=== PATIENT | male | born 1960 | race Caucasian/White ===

== ENCOUNTER 2019-11-29 09:27 | Outpatient (CLI) | payer MEDICARE, MEDICAID, SELFPAY ==
[2019-11-29 09:54] LABS: Basophils Absolute Auto 0.1 K/mm3 (0.0-0.1); Basophils Percent Auto 0.9 % (0.2-1.2); Eosinophils Absolute Auto 0.4 K/mm3 (0-0.3); Eosinophils Percent Auto 4.6 % (0-4.4); Hematocrit 50.3 % (42.0-52.0); Hemoglobin 16.5 g/dL (14.0-18.0); Immature Granulocyte Absolute 0.02 K/mm3 (0.00-0.031); Immature Granulocyte Percent A 0.2 % (0-0.5); Lymphocytes Absolute Auto 2.24 K/mm3 (0.9-3.2); Lymphocytes Percent Auto 26.3 % (18.3-44.2); Mean Corpuscular HGB Conc 32.8 g/dl (32-36); Mean Corpuscular Hemoglobin 30.7 pg (26-34); Mean Corpuscular Volume 93.5 fl (80-100); Mean Platelet Volume 10.8 fl (7.4-10.4); Monocytes Absolute Auto 0.8 K/mm3 (0.1-0.6); Monocytes Percent Auto 9.5 % (2.6-8.5); Neutrophils Percent Auto 58.5 % (45.5-73.1); Platelet Count Result 230 k/mm3 (150-375); Red Blood Count 5.38 M/mm3 (4.6-6.20); Red Cell Distribution Width 13.2 % (11.5-14.5); White Blood Count 8.5 K/mm3 (4.5-10.0)
[2019-11-29 10:07] LABS: Alanine Aminotransferase 20 U/L (4-50); Albumin Level 4.1 g/dL (3.5-5.1); Alkaline Phosphatase 61 U/L (38-126); Aspartate Amino Transferase 24 U/L (17-59); Bilirubin,Total 0.6 mg/dL (0.2-1.3); Blood Urea Nitrogen 12 mg/dL (9-20); Calcium 9.1 mg/dL (8.4-10.2); Carbon Dioxide 27 mmol/L (22-30); Chloride 108 mmol/L (98-107); Cholesterol 149 mg/dL (0-200); Estimated Glomerular Filt Rate 56; Glucose 107 mg/dL (75-110); HDL Direct 41 mg/dL; Potassium 4.7 mmol/L (3.4-5.0); Sodium 139 mmol/L (137-145); Triglycerides 140 mg/dL (<150)
[2019-11-29 10:18] LABS: LDL Cholesterol Direct 87 mg/dL
[2019-11-29 10:36] LABS: Thyroid Stimulating Hormone 0.837 uIU/mL (0.465-4.680)
[2019-11-29 10:47] LABS: Vitamin D 25 Hydroxy 30.8 ng/mL
== END 2019-11-29 09:28 | disposition home or self-care (01) ==
PROVIDERS: PCP Internal Medicine; Visit Provider Internal Medicine
DX: I10 Essential (primary) hypertension (principal); E78.2 Mixed hyperlipidemia; E55.9 Vitamin D deficiency, unspecified
CPT/HCPCS: 36415; 80053; 80061; 82306; 84443; 85025

== ENCOUNTER 2020-03-08 10:58 | Outpatient (CLI) | payer MEDICARE, MEDICAID, SELFPAY ==
--- NOTE | ~2020-03-08 | CT_ITS ---
EXAMINATION: CT chest wo con DATE: 03/08/2020 11:23 INDICATION: Follow-up pulmonary nodule. Renal cell carcinoma. Skin cancer. TECHNIQUE: Computed tomography (CT) of the chest was performed without intravenous contrast. The dose -length product was 116.81 mGy-cm. Automated exposure control and iterative reconstruction technique were employed. COMPARISON: CT dated 01/01/2019 and 08/01/2018 FINDINGS: No thoracic lymphadenopathy. Heart size normal. No significant pleural or pericardial effus ion. There is a 2.6 cm liver cyst. No endobronchial lesions. No focal airspace consolidation. Small r ight upper lobe nodules unchanged, largest measuring 3 mm. Stable fissural nodule on the left, likely benign. Mild emphysema. No pneumothorax. Mild thoracic spondylosis. No osteolytic or osteoblastic le sions. IMPRESSION: 1. Stable right upper lobe nodules, largest measuring 3 mm, likely benign. 2: Mild emphysema. Reviewed, dictated and finalized at location A.
== END 2020-03-08 10:59 | disposition home or self-care (01) ==
PROVIDERS: PCP Internal Medicine; Visit Provider Internal Medicine Critical Care Medicine
DX: R91.1 Solitary pulmonary nodule (principal); R91.8 Other nonspecific abnormal finding of lung field; J43.9 Emphysema, unspecified
CPT/HCPCS: 71250

== ENCOUNTER 2020-06-01 08:19 | Outpatient (CLI) | payer MEDICARE, MEDICAID, SELFPAY ==
[2020-06-01 09:32] LABS: Alanine Aminotransferase 16 U/L (4-50); Albumin Level 4.2 g/dL (3.5-5.1); Alkaline Phosphatase 65 U/L (38-126); Anion Gap 4 mmol/L (8-16); Aspartate Amino Transferase 22 U/L (17-59); Bilirubin,Total 0.5 mg/dL (0.2-1.3); Blood Urea Nitrogen 15 mg/dL (9-20); Carbon Dioxide 28 mmol/L (22-30); Chloride 104 mmol/L (98-107); Estimated Glomerular Filt Rate 52; Glucose 111 mg/dL (75-110); Potassium 4.6 mmol/L (3.4-5.0); Sodium 136 mmol/L (137-145)
[2020-06-01 10:07] LABS: Prostate Specific Antigen 0.9 ng/mL (< OR = 4.0)
== END 2020-06-01 08:20 | disposition home or self-care (01) ==
PROVIDERS: PCP Internal Medicine; Visit Provider Internal Medicine
DX: Z12.5 Encounter for screening for malignant neoplasm of prostate (principal); E78.2 Mixed hyperlipidemia; I10 Essential (primary) hypertension
CPT/HCPCS: 36415; 80053; 84153; G0103

== ENCOUNTER 2020-06-02 00:24 | Outpatient (CLI) | payer MEDICARE, MEDICAID, SELFPAY ==
[2020-06-02 17:26] LABS: SARS-CoV-2 RNA PCR Negative
== END 2020-06-02 00:25 | disposition home or self-care (01) ==
LOC: ANHCOVIDDT 00:25
PROVIDERS: PCP Internal Medicine; Visit Provider Plastic Surgery
DX: Z01.812 Encounter for preprocedural laboratory examination (principal); Z20.828 Contact with and (suspected) exposure to other viral communicable diseases
CPT/HCPCS: 87635; C9803; U0003

== ENCOUNTER 2020-06-04 00:57 | Day surgery (SDC) | payer MEDICARE, MEDICAID, SELFPAY ==
[2020-05-26 11:43] VITALS: BMI 27.3
[2020-06-04] VITALS (9 sets, daily range): BP systolic 137–153; BP diastolic 70–83; PULSE 56–72; RESP 14–20; TEMP 37.2; O2SAT 96–99
--- NOTE | 2020-06-04 07:11 | WPDHPUPDATE1 ---
History and Physical Update Update Date/Time: 06/04/20 07:11 History and Physical has been reviewed, including an updated exam of the patient. There are NO changes in the patient's condition. Risks, benefits, and alternatives have been discussed and questions answered. Patient agrees to proceed with procedure.
[2020-06-04] MEDS: LIDO 1%/EPINEPHRINE 1:100,000 20 ML VIAL 8 ML INFILTRATE (12:53)
[2020-06-04] MEDS: BACITRACIN OINTMENT 15 GM TUBE 1 APPLIC TOPICAL (13:41)
--- NOTE | 2020-06-04 13:59 | SUR.OPER ---
EBL:5cc
--- NOTE | 2020-06-04 17:17 | PM.PROC ---
Procedure Note - Detailed Date of procedure: 06/04/20 Pre-op diagnosis: subq mass right ring finger Post-op diagnosis: same Procedure performed: excision of 2.5 cm subcutaneous mass of the right ring finger through 2 access incisions Description of procedure: the right ring finger was marked in the holding area identifying the firm subcutaneous masses on the dorsal and palmar aspect of the ring finger on both the proximal and middle phalanges. He was taken to the operating room placed supine on the operating table. The hand was prepped and draped in the usual fashion. The digit was anesthetized with 1% lidocaine with epinephrine placed as an intrathecal block. The green tourniquet was applied to the base of this finger. The initial incision was a paramedian incision for the proximal interphalangeal joint and middle phalanx. Dissection revealed a large firm softly lobulated mass with some celis pigment consistent with giant cell tumor. Blunt dissection with sharp tip scissors was used throughout this procedure. The narrow limb of this substance extended into the palmar aspect past the phalanx and tendon sheath. The 2nd incision was made more proximally on the palmar aspect running and Laureano fashion. A tumor mass of equal size was found on this side. It lay on or around the flexor tendon sheath. It was removed in its entirety. The wound was closed with running 5 0 nylon and a bulky bandage He was discharged with instructions in wound care and follow-up and a prescription for Hydrocodone . Surgeon: Fahad Schmid MD
== END 2020-06-04 14:40 | disposition home or self-care (01) ==
PROVIDERS: PCP Internal Medicine; Visit Provider Plastic Surgery
DX: D48.1 Neoplasm of uncertain behavior of connective and other soft tissue (principal); F17.200 Nicotine dependence, unspecified, uncomplicated; J43.9 Emphysema, unspecified; I13.10 Hypertensive heart and chronic kidney disease without heart failure, with stage 1 through stage 4 chronic kidney disease, or unspecified chronic kidney disease; N18.9 Chronic kidney disease, unspecified; Z90.5 Acquired absence of kidney; M19.90 Unspecified osteoarthritis, unspecified site
CPT/HCPCS: 26160; 88304; A9270

== ENCOUNTER 2020-10-29 10:24 | Outpatient (CLI) | payer MEDICARE, MEDICAID, SELFPAY ==
--- NOTE | ~2020-10-29 | XR_ITS ---
EXAMINATION: XR chest 2V 10/29/2020 10:44 INDICATION: Shortness of breath PROCEDURE: 2 view chest COMPARISON: 12/18/2017 FINDINGS: The lungs are clear. The cardiomediastinal silhouette is within normal limits. There are no pleural effusions. There is no pneumothorax suspected. IMPRESSION: 1: NO ACUTE CARDIOPULMONARY DISEASE. Reviewed, dictated and finalized at location B. STOCK FEEDER
== END 2020-10-29 10:25 | disposition home or self-care (01) ==
PROVIDERS: PCP Internal Medicine; Visit Provider Nurse Practitioner Family
DX: R06.02 Shortness of breath (principal); J44.9 Chronic obstructive pulmonary disease, unspecified; R05 Cough
CPT/HCPCS: 71046

== ENCOUNTER 2020-12-04 09:03 | Outpatient (CLI) | payer MEDICARE, MEDICAID, SELFPAY ==
[2020-12-04 09:24] LABS: Basophils Absolute Auto 0.1 K/mm3 (0.0-0.1); Basophils Percent Auto 0.7 % (0.2-1.2); Eosinophils Absolute Auto 0.2 K/mm3 (0-0.3); Eosinophils Percent Auto 2.2 % (0-4.4); Hematocrit 48.8 % (42.0-52.0); Hemoglobin 16.5 g/dL (14.0-18.0); Immature Granulocyte Absolute 0.05 K/mm3 (0.00-0.031); Immature Granulocyte Percent A 0.5 % (0-0.5); Lymphocytes Absolute Auto 2.14 K/mm3 (0.9-3.2); Lymphocytes Percent Auto 22.4 % (18.3-44.2); Mean Corpuscular HGB Conc 33.8 g/dl (32-36); Mean Corpuscular Hemoglobin 31.1 pg (26-34); Mean Corpuscular Volume 92.1 fl (80-100); Mean Platelet Volume 10.3 fl (7.4-10.4); Monocytes Absolute Auto 0.8 K/mm3 (0.1-0.6); Monocytes Percent Auto 8.8 % (2.6-8.5); Neutrophils Absolute Auto 6.3 K/mm3 (1.3-6.7); Neutrophils Percent Auto 65.4 % (45.5-73.1); Platelet Count Result 221 k/mm3 (150-375); Red Cell Distribution Width 13.2 % (11.5-14.5); White Blood Count 9.6 K/mm3 (4.5-10.0)
[2020-12-04 10:40] LABS: Vitamin D 25 Hydroxy 32.6 ng/mL
[2020-12-04 10:47] LABS: Alanine Aminotransferase 17 U/L (4-50); Albumin Level 4.2 g/dL (3.5-5.1); Alkaline Phosphatase 61 U/L (38-126); Anion Gap 4 mmol/L (8-16); Aspartate Amino Transferase 23 U/L (17-59); Bilirubin,Total 0.8 mg/dL (0.2-1.3); Blood Urea Nitrogen 15 mg/dL (9-20); Calcium 9.3 mg/dL (8.4-10.2); Carbon Dioxide 28 mmol/L (22-30); Chloride 107 mmol/L (98-107); Cholesterol 141 mg/dL (0-200); Estimated Glomerular Filt Rate 48; Glucose 113 mg/dL (75-110); HDL Direct 44 mg/dL; Potassium 4.1 mmol/L (3.4-5.0); Sodium 139 mmol/L (137-145); Triglycerides 111 mg/dL (<150)
[2020-12-04 11:00] LABS: LDL Cholesterol Direct 73 mg/dL
[2020-12-04 11:20] LABS: Prostate Specific Antigen 1.1 ng/mL (< OR = 4.0)
[2020-12-04 11:54] LABS: Folic Acid 13.3 ng/mL (2.76->20)
== END 2020-12-04 09:04 | disposition home or self-care (01) ==
PROVIDERS: PCP Internal Medicine; Visit Provider Internal Medicine
DX: E55.9 Vitamin D deficiency, unspecified (principal); E78.2 Mixed hyperlipidemia; F32.9 Major depressive disorder, single episode, unspecified; F41.9 Anxiety disorder, unspecified; G62.9 Polyneuropathy, unspecified; I10 Essential (primary) hypertension; I25.10 Atherosclerotic heart disease of native coronary artery without angina pectoris; J44.9 Chronic obstructive pulmonary disease, unspecified; Z12.5 Encounter for screening for malignant neoplasm of prostate
CPT/HCPCS: 36415; 80053; 80061; 82306; 82607; 82746; 84153; 84443; 85025; G0103

== ENCOUNTER 2021-03-01 10:02 | Outpatient (CLI) | payer MEDICARE, MEDICAID, SELFPAY ==
--- NOTE | ~2021-03-01 | CT_ITS ---
EXAMINATION: CT lung screening DATE: 03/01/2021 10:17 INDICATION: Z87.891 - Personal history of nicotine dependence TECHNIQUE: Computed tomography (CT) of the chest was performed without intravenous contrast. Addition al 3D reconstructions utilizing coronal maximum intensity projection (MIP) were performed. Automated exposure control and iterative reconstruction technique were employed. The dose-length product was 13 1.57 mGy-cm. COMPARISON: None FINDINGS: There are a couple 2-3 mm nodules in both the the apical segment of the right upper lobe in the apico posterior segment of the left upper lobe. 3 mm nodule in the superior segment of the right lower lobe . No pneumonia, pulmonary edema or pleural effusion. Heart size is normal. Small amount of atheroscle rotic coronary artery calcific location. No pericardial effusion. Thoracic aorta is normal in caliber . No pathologically enlarged thoracic lymphadenopathy. Couple low-attenuation hepatic cysts, the larg est measuring 2.6 cm. Moderate thoracic spondylosis. IMPRESSION: 1. Lung-RADS category 2: Benign appearance or behavior. Continue annual screening with noncontrast lo w-dose chest CT in 12 months. Reviewed, dictated and finalized at location A. IMPRESSION: 1. Lung-RADS category 2: Benign appearance or behavior. Continue annual screeni ng with noncontrast low-dose chest CT in 12 months.
== END 2021-03-01 10:03 | disposition home or self-care (01) ==
LOC: ANHIMG 10:07
PROVIDERS: PCP Family Medicine; Visit Provider Nurse Practitioner Family
DX: Z12.2 Encounter for screening for malignant neoplasm of respiratory organs (principal); Z87.891 Personal history of nicotine dependence
CPT/HCPCS: 71271

== ENCOUNTER 2022-03-02 08:02 | Outpatient (CLI) | payer MEDICARE, MEDICAID, SELFPAY ==
--- NOTE | ~2022-03-02 | CT_ITS ---
EXAMINATION:CT lung screening DATE: 03/02/2022 08:27 INDICATION: Personal history of nicotine dependence. Current smoker with 45 pack year history. TECHNIQUE: Computed tomography (CT) of the chest was performed without intravenous contrast. Automate d exposure control and iterative reconstruction technique were employed. The dose-length product (DLP ) was 114.32 mGy-cm. COMPARISON: Chest CT 03/01/2021 FINDINGS: There is mild emphysema. There is mild scarring at the lung apices without change. There is a new 5 mm nodule in right upper lobe. There is a stable 3 mm nodule in left upper lobe. No pleural effusion. The heart size is normal. There are coronary artery calcifications. No pericardial effusion . There are cysts in the liver measuring up to 1.9 cm. There is severe cervical and thoracic spondylo sis. IMPRESSION: 1. Lung-RADS category 3: Probably benign. Further evaluation is recommended with noncontrast low-dose chest CT in 6 months. Reviewed, dictated and finalized at location B. IMPRESSION: 1. Lung-RADS category 3: Probably benign. Further evaluation is recommended wit h noncontrast low-dose chest CT in 6 months.
== END 2022-03-02 08:03 | disposition home or self-care (01) ==
PROVIDERS: PCP Family Medicine; Visit Provider Nurse Practitioner Family
DX: Z12.2 Encounter for screening for malignant neoplasm of respiratory organs (principal); Z87.891 Personal history of nicotine dependence
CPT/HCPCS: 71271

== ENCOUNTER 2022-04-17 13:08 | Outpatient (CLI) | payer MEDICARE, MEDICAID, SELFPAY ==
--- NOTE | ~2022-04-17 | CT_ITS ---
EXAMINATION: CT sinus wo con DATE: 04/17/2022 13:39 INDICATION: Chronic sinusitis TECHNIQUE: Computed tomography (CT) of the paranasal sinuses was performed without contrast. Iterativ e reconstruction technique was employed. Exam dose: 305.77 mGy-cm total exam DLP. COMPARISON: None FINDINGS: There is prominent rightward deviation of the anterior portion of the nasal septum and mild leftward bowing of the posterior septum. There is prominent soft tissue swelling of the nasal turbinates, right greater than left. Intralamellar cell of left middle nasal turbinate. The ostiomeatal units are patent bilaterally. There is patchy soft tissue thickening of the ethmoid air cells bilaterally. Small mucous retention cysts in the posteromedial aspect of the right maxillary sinus. The paranasal sinuses are otherwise normally developed and aerated. The mastoid air cells are well-developed and aerated bilaterally. Middle and inner ear apparatus appear normal. IMPRESSION: Prominent rightward deviation of the anterior nasal septum, mild leftward bowing of post erior nasal septum Soft tissue swelling of the nasal turbinates, right greater than left Intralamellar cell of left middle nasal turbinate Patchy soft tissue thickening the ethmoid air cells Small mucus retention cyst of right maxillary sinus Reviewed, dictated and finalized at Location A. Reviewed, dictated and finalized at location B. IMPRESSION: Prominent rightward deviation of the anterior nasal septum, mild l eftward bowing of posterior nasal septum Soft tissue swelling of the nasal turbinates, right greater than left Intralamellar cell of left middle nasal turbinate Patchy soft tissue thickening the ethmoid air cells Small mucus retention cyst of right maxillary sinus
== END 2022-04-17 13:09 | disposition home or self-care (01) ==
PROVIDERS: PCP Family Medicine; Visit Provider Otolaryngology
DX: J32.9 Chronic sinusitis, unspecified (principal); J34.2 Deviated nasal septum; J34.3 Hypertrophy of nasal turbinates; R09.81 Nasal congestion; R09.82 Postnasal drip; R51.9 Headache, unspecified; Z72.0 Tobacco use
CPT/HCPCS: 70486

== ENCOUNTER 2022-06-08 09:06 | Outpatient (CLI) | payer MEDICARE, MEDICAID, SELFPAY ==
--- NOTE | 2022-06-08 09:26 | ECG_ITS ---
Measurements Intervals [place] Rate: 62 P: 55 ND: 163 QRS: 28 QRSD: 94 T: 52 QT: 407 QTc: 414 Interpretive Statements SINUS RHYTHM BASELINE ARTIFACT- I, III, AVR, AVL, AVF NORMAL ECG COMPARED TO ECG 11/27/2018 10:14:53 NO SIGNIFICANT CHANGES Electronically Signed On 06-08-2022 12:02:25 CDT by Oneil Pierce D.O.
[2022-06-08 10:17] LABS: Anion Gap 11 mmol/L (8-16); Blood Urea Nitrogen 11 mg/dL (9-20); Calcium 8.8 mg/dL (8.4-10.2); Carbon Dioxide 24 mmol/L (22-30); Chloride 106 mmol/L (98-107); Estimated Glomerular Filt Rate > 60; Glucose 115 mg/dL (65-110); Potassium 3.9 mmol/L (3.4-5.0); Prothrombin Time 13.1 Seconds (11.1-14.7); Sodium 141 mmol/L (137-145)
[2022-06-08 10:18] LABS: Partial Thromboplastin Time 28.6 SECONDS (22.3-36.8)
== END 2022-06-08 09:07 | disposition home or self-care (01) ==
LOC: ANHSURGERY 09:16
PROVIDERS: Anesthesiology; PCP Family Medicine; Visit Provider Otolaryngology
DX: N28.9 Disorder of kidney and ureter, unspecified (principal); E78.2 Mixed hyperlipidemia; I10 Essential (primary) hypertension; Z72.0 Tobacco use; Z01.818 Encounter for other preprocedural examination
CPT/HCPCS: 36415; 80048; 85610; 85730; 93005

== ENCOUNTER 2022-06-10 01:07 | Day surgery (SDC) | payer MEDICARE, MEDICAID, SELFPAY ==
[2022-06-07 13:23] VITALS: BMI 25.8
--- NOTE | 2022-06-07 13:33 | PC.NURSE ---
Report to the Outpatient Waiting Room, entrance under the green pavilion located off [facility], at time 1000 on date 06/10/22. OR Time: 1200. Time changes happen often and if your time is changed the preop area will call you the afternoon before. - You and your visitor will be asked to self-screen and do not enter if you have any COVID symptoms. - Only one visitor and NO children visitors are allowed at this time. - The patient visitor is requested to leave or wait in car when not with patient due to restrictions. - A mask is required within the hospital. Patients may have clear liquids (water, carbonated beverages, clear teas, apple juice) until 3 hours prior to surgery with a maximum of 20 ounces. - No food from midnight until time of surgery Take the following medications with a SIP of water the morning of surgery: INHALERS, GABAPENTIN Medications to discontinue per physician: ASPIRIN Date to take last dose: PER DR. DURAN Please no make-up, nail ir[place]i, hairspray, perfume, deodorant, or body powder the day of surgery. No jewelry (including any body piercings) or valuables the day of surgery, leave them at home. Please take a shower or bath the night before, or the morning of, surgery with an antibacterial soap. Wear comfortable, loose fitting clothing. - Jewelry must be removed prior to entering the operating room. Rings and piercings that are not removed may be cut off. - The hospital will not accept responsibility for valuables. - Please leave all valuables, including medications, at home the day of surgery. If you are going home after surgery, a licensed trash collector truck driver must drive you home. - NO public transportation without another adult. - We recommend that an adult stay with you for 24 hours following discharge. - We also recommend that you do not drive, make important decision, drink alcoholic beverages, or take any drugs that were not prescribed by your health care provider for at least 24 hours after your discharge time. Follow any additional instructions given to you from your surgeon. If you or anyone in your household have experienced Covid symptoms in the past week, please notify your surgeon or the nurse liaison at the phone number below for possible testing. Telephone instructions given to PT - SINGH WALDROP and asked if any additional questions and then verbalized understanding. Patient advised to call surgeon office or pre surgery nurse liaison [phone] if any additional questions.
--- NOTE | 2022-06-09 07:58 | PM.IMHP ---
H&P: HPI History of Present Illness Date/Time: 06/09/22 07:58 Chief Complaint: Septal deviation turbinate hypertrophy nasal obstruction nasal congestion chronic sinusitis postnasal drip facial pressure facial pain PMFSH Past Medical History Medical History CAD in [place] artery DJD (degenerative joint disease), lumbosacral Essential hypertension Hx of renal cell carcinoma Hx of solitary pulmonary nodule Hx of unilateral nephrectomy Impaired fasting glucose Low sodium levels Marijuana use Mixed hyperlipidemia Osteoarthritis of multiple joints PAD (peripheral artery disease) Polyneuropathy Pulmonary fibrosis, unspecified Skin neoplasm Spinal stenosis of lumbosacral region Tobacco use Surgical History Surgical History History of colonoscopy Family History Family History Father Family history of malignant neoplasm Family history of coronary artery disease Family history of congestive heart failure Mother Family history of congestive heart failure Social History Social History Smoking packs per day: 1 Smoking cigarettes per day: 20.0 Years smoked: 45 Smoking pack-years: 45.00 Smoking status: Current every day smoker Tobacco type: cigarettes Alcohol intake: never Substance use: current Substance use type: marijuana Last use: 05/26/20 Spiritual care concerns: No Meds Home Medications and Allergies Home Medications Medication Instructions Recorded Confirmed Type aspirin 81 mg tablet,delayed 81 mg PO DAILY 10/23/19 06/07/22 History release (Adult Low Dose Aspirin) lisinopril 20 mg tablet See Rx Instructions .Route 05/10/21 06/07/22 Rx .COMPLEX #90 tabs simvastatin 40 mg tablet See Rx Instructions .Route 07/05/21 06/07/22 Rx .COMPLEX #90 tabs fluticasone propionate 50 See Rx Instructions .Route 08/16/21 06/07/22 Rx mcg/actuation nasal .COMPLEX #16 grams spray,suspension albuterol sulfate 2.5 mg/3 mL 2.5 mg (3 mL) inhalation BID PRN 01/17/22 06/07/22 Rx (0.083 %) solution for nebulization shortness of breath or wheezing #180 mL gabapentin 600 mg tablet 600 mg PO TID #270 tabs 01/19/22 06/07/22 Rx fluticasone 250 mcg-salmeterol 50 See Rx Instructions .Route 04/04/22 06/07/22 Rx mcg/dose blistr powdr for .COMPLEX ##180 inhalation (Advair Diskus) mupirocin 2 % topical ointment 1 applic topical BID #22 grams 04/12/22 06/07/22 Rx albuterol sulfate 90 mcg/actuation 1 - 2 puff inhalation Q4-6H PRN 04/15/22 06/07/22 Rx aerosol inhaler shortness of breath or wheezing #8.5 grams azelastine 137 mcg (0.1 %) nasal 137 mcg (0.137 mL) intranasal 04/19/22 06/07/22 Rx spray aerosol DAILY #30 mL Allergies Allergy/AdvReac Type Severity Reaction Status Date / Time ibuprofen AdvReac Unknown Abdominal Verified 06/07/22 13:21 Pain levofloxacin AdvReac Unknown Abdominal Verified 06/07/22 13:21 Pain mirabegron AdvReac Unknown Abdominal Verified 06/07/22 13:21 Pain Assessment and Plan Assessment and plan (1) Nasal congestion: Code(s): R09.81 - Nasal congestion Status: Acute Assessment and Plan: Plan endoscopic assisted septoplasty turbinate reduction with outfracture total ethmoidectomies bilateral image guided endoscopic. Risks were discussed including bleeding infection blindness CSF leak change in vision brain brain damage septal perforation failure to resolve symptoms postoperative infection postoperative bleeding damage to any structure during the induction and or maintenance of anesthesia. Patient voiced understanding and agreed. (2) Hypertrophy of both inferior nasal turbinates: Code(s): J34.3 - Hypertrophy of nasal turbinates Status: Acute (3) Nasal septal deviation: Code(s): J34.2 - Deviated nasal septum S
--- NOTE | 2022-06-09 10:40 | WPDANESEPPF ---
Anes - Initial Pre Proc Eval Procedure: Operation Date: 06/10/22 10:30 Proposed Procedures p Image Guided Bilateral Total Ethmoidectomy, Bilateral Inferior Turbinectomy with Outfracture - Lew Swan MD s Endoscopic Septoplasty - Lew Swan MD Date/Time: 06/09/22 10:40 Surgeon: Lew Swan MD Pre Op Diagnosis: Septal Deviation, Turbinate Hypertrophy Patient Data Age: 62 Gender: M Height: 1.75 m Weight: 79.38 kg Allergies Allergy/AdvReac Type Severity Reaction Status Date / Time ibuprofen AdvReac Unknown Abdominal Verified 06/07/22 13:21 Pain levofloxacin AdvReac Unknown Abdominal Verified 06/07/22 13:21 Pain mirabegron AdvReac Unknown Abdominal Verified 06/07/22 13:21 Pain Home Medications Medication Instructions Recorded Confirmed Type aspirin 81 mg tablet,delayed 81 mg PO DAILY 10/23/19 06/07/22 History release (Adult Low Dose Aspirin) lisinopril 20 mg tablet See Rx Instructions .Route 05/10/21 06/07/22 Rx .COMPLEX #90 tabs simvastatin 40 mg tablet See Rx Instructions .Route 07/05/21 06/07/22 Rx .COMPLEX #90 tabs fluticasone propionate 50 See Rx Instructions .Route 08/16/21 06/07/22 Rx mcg/actuation nasal .COMPLEX #16 grams spray,suspension albuterol sulfate 2.5 mg/3 mL 2.5 mg (3 mL) inhalation BID PRN 01/17/22 06/07/22 Rx (0.083 %) solution for nebulization shortness of breath or wheezing #180 mL gabapentin 600 mg tablet 600 mg PO TID #270 tabs 01/19/22 06/07/22 Rx fluticasone 250 mcg-salmeterol 50 See Rx Instructions .Route 04/04/22 06/07/22 Rx mcg/dose blistr powdr for .COMPLEX ##180 inhalation (Advair Diskus) mupirocin 2 % topical ointment 1 applic topical BID #22 grams 04/12/22 06/07/22 Rx albuterol sulfate 90 mcg/actuation 1 - 2 puff inhalation Q4-6H PRN 04/15/22 06/07/22 Rx aerosol inhaler shortness of breath or wheezing #8.5 grams azelastine 137 mcg (0.1 %) nasal 137 mcg (0.137 mL) intranasal 04/19/22 06/07/22 Rx spray aerosol DAILY #30 mL ECG: Date of Service: 06/08/22 Procedure(s): CA 12 lead EKG Accession Number(s): [id number] cc: ~ ? Measurements Intervals? [place]? Rate: ? 62 ? P:? 55 MO: ? 163? QRS:? 28 QRSD: ? 94 ? T:? 52 QT: ? 407? QTc:? 414? Interpretive Statements SINUS RHYTHM BASELINE ARTIFACT- I, III, AVR, AVL, AVF NORMAL ECG COMPARED TO ECG 11/27/2018 10:14:53 NO SIGNIFICANT CHANGES Electronically Signed On 06-08-2022 12:02:25 CDT by Oniel Pierce D.O. Other studies: Stress Tests:: MPI (Lexiscan myoview: Negative for ischemia.) - 10/27/2017 Echo (EF 60-65%, diastolic dysfunction (E/E' 10), mild LAE.) - 09/07/2018 Patient hx anesthesia problems: none Family hx anesthesia problems: none Results Review: All pre-operative results and documents have been reviewed as part of the pre-operative evaluation. [facility] Past Medical History Medical History Anxiety and depression Asthma-COPD overlap syndrome CAD in [place] artery Chronic obstructive pulmonary disease DJD (degenerative joint disease), lumbosacral Essential hypertension Hx of renal cell carcinoma Hx of solitary pulmonary nodule Hx of unilateral nephrectomy Impaired fasting glucose Low sodium levels Lung nodule Marijuana use Mixed hyperlipidemia Nocturnal hypoxemia Osteoarthritis of multiple joints Overweight (BMI 25.0-29.9) PAD (peripheral artery disease) Polyneuropathy Pulmonary fibrosis, unspecified Skin neoplasm Spinal stenosis of lumbosacral region Tobacco use Surgical History Surgical History (Updated 06/09/22 @ 10:45 by Neto Charlton MD) History of colonoscopy History of nephrectomy Family History Family History (Reviewed 06/03/22 @ 08:56 by [facility]
[2022-06-10] VITALS (11 sets, daily range): BP systolic 118–168; BP diastolic 57–84; PULSE 55–72; RESP 10–55; TEMP 36.3–36.6; O2SAT 95–100
--- NOTE | 2022-06-10 07:13 | WPDHPUPDATE1 ---
History and Physical Update Update Date/Time: 06/10/22 07:13 History and Physical has been reviewed, including an updated exam of the patient. There are NO changes in the patient's condition. Risks, benefits, and alternatives have been discussed and questions answered. Patient agrees to proceed with procedure.
[2022-06-10] MEDS: ACETAMINOPHEN 500 MG TABLET 1000 MG PO (09:32)
[2022-06-10] MEDS: LACTATED RINGERS 1,000 ML 30 ML IV CONT ×2 (09:32→12:21)
[2022-06-10] MEDS: ceFAZolin 2 GM/D5W 50 ML 2 GM/50 ML BAG IVPB (10:23)
[2022-06-10] MEDS: OXYMETAZOLINE HCL 0.05% NAS 15 ML BTL (*BKC) 1 SPRAY NASAL (10:48)
[2022-06-10] MEDS: MUPIROCIN 2% OINT 22 GM TUBE 1 APPLIC EACH NARE (11:48)
[2022-06-10] MEDS: LIDO 1%/EPINEPHRINE 1:100,000 10 ML VIAL 20 ML INFILTRATE (11:48)
[2022-06-10] MEDS: ONDANSETRON INJ 4 MG/2 ML VIAL IV PUSH (13:05)
--- NOTE | 2022-06-10 13:25 | P.OP_ITS ---
Procedure Note - Detailed Date of Procedure 06/10/22 Pre-op Diagnosis Septal Deviation, Turbinate Hypertrophy, chronic obstruction, nasal congestion, chronic ethmoidal sinusitis Post-op Diagnosis Same Procedure Performed endoscopic assisted septoplasty, inferior turbinate submucosal resection with outfracture, image guided endoscopic bilateral total ethmoidectomies Surgeon Lew Swan MD Anesthesia General Indications see above Findings deviated septum small perforation on the right side well straightened following procedure turbinate hypertrophy well reduced. Edematous diseased mucosa in the ethmoid cells. Description of Procedure patient identified consent verified. Patient brought operating room. Time-out performed. General anesthesia induced endotracheal tube secured taped to left side. Patient prepped and draped image guided initiated and confirmed Afrin- soaked pledgets placed then removed 5 minutes later 2nd time-out performed. 0 degree endoscope utilized total 15 cc 1% lidocaine 1 100,000 parts epinephrine injected into the nasal septum and inferior turbinates [place] incision made left side with 15 blade left nasal septal flap elevated with 7 [place] suction osteotome utilized to cross over right nasal septal flap elevated. Deviated septum removed Carlos Eduardo Khan forceps osteotome and Ruth forceps. [place] incision closed with 3 interrupted 5 0 fast gut sutures. Turbinates reduced in the submucosal plane using turbinate blade on microdebrider they were then outfractured very good reduction middle turbinates medialized this a bilateral procedure ethmoids removed using image guided microdebrider image guidance on the suction as well as [place]. Bleeding was minimal Nova pack was placed in the BIOM lateral ethmoid cavities. There was edematous diseased mucosa Thick mucus in all the ethmoid cells. Total blood loss less than 50 cc. [place] splints were placed and sutured anteriorly using a mattress 3-0 nylon suture. There were no complications. I performed all dictated portions of the procedure. Care the patient was given Anesthesiology. Of note there was some abnormal leukoplakic tissue in the left anterior nasal septum this was biopsied and sent for pathologic analysis. Estimated Blood Loss -50.0 Drains No Packing Yes (Novapak) Pathology Yes Complications No immediate complications Condition Stable Disposition PACU
[2022-06-10] MEDS: SCOPOLAMINE 1.5 MG PATCH TRANSDERM (13:49)
[2022-06-10] MEDS: diphenhydrAMINE HCl INJ 50 MG/ML VIAL 12.5 MG IV PUSH (13:49)
== END 2022-06-10 14:40 | disposition home or self-care (01) ==
PROVIDERS: PCP Family Medicine; Visit Provider Otolaryngology
PROC: (CPT 31255; principal; 2022-06-10 10:30)
PROC: (CPT 30520; 2022-06-10 10:30)
DX: J34.2 Deviated nasal septum (principal); R09.81 Nasal congestion; J34.3 Hypertrophy of nasal turbinates; J32.2 Chronic ethmoidal sinusitis; J34.89 Other specified disorders of nose and nasal sinuses; R09.82 Postnasal drip; I25.10 Atherosclerotic heart disease of native coronary artery without angina pectoris; E78.2 Mixed hyperlipidemia; I73.9 Peripheral vascular disease, unspecified; J84.10 Pulmonary fibrosis, unspecified; Z85.528 Personal history of other malignant neoplasm of kidney; Z90.5 Acquired absence of kidney; F17.210 Nicotine dependence, cigarettes, uncomplicated; F12.90 Cannabis use, unspecified, uncomplicated; Z79.82 Long term (current) use of aspirin; Z79.51 Long term (current) use of inhaled steroids
CPT/HCPCS: 31255; 30140; 30520; 88305; A9270; J0330; J0690; J1100; J1170; J1200; J2250; J2405; J2704; J3010; J7120

== ENCOUNTER 2022-06-24 13:44 | Outpatient (CLI) | payer MEDICARE, MEDICAID, SELFPAY ==
--- NOTE | ~2022-06-24 | CT_ITS ---
EXAMINATION: CT abdomen pelvis wo/w con DATE: 06/24/2022 14:16 INDICATION: Left nephrectomy for renal cell carcinoma. Difficulty urinating. Abdominal pain. TECHNIQUE: Computed tomography (CT) of the abdomen and pelvis was performed without intravenous contr ast. The dose-length product was 725.15 mGy-cm. Automated exposure control and iterative reconstructi on technique were employed. COMPARISON: None. FINDINGS: Lung bases are unremarkable. No significant pleural or pericardial effusion. Heart size nor mal. Status post left nephrectomy. No right nephrolithiasis. Nonobstructive bowel gas pattern. There are multiple small low density lesions throughout the liver, most likely benign cysts. The spleen, pa ncreas, adrenal glands and right kidney are unremarkable. No focal lytic or sclerotic lesions. Severe lumbar spondylosis with scoliosis. No abnormal masses or fluid collections in the left nephrectomy b ed. No lymphadenopathy. IMPRESSION: 1. Status post left nephrectomy without evidence for recurrent/residual neoplasm. Reviewed, dictated and finalized at location A. IMPRESSION: 1. Status post left nephrectomy without evidence for recurrent/residual neoplas mRedd
== END 2022-06-24 13:45 | disposition home or self-care (01) ==
PROVIDERS: PCP Family Medicine
DX: C64.2 Malignant neoplasm of left kidney, except renal pelvis (principal); M47.816 Spondylosis without myelopathy or radiculopathy, lumbar region
CPT/HCPCS: 74178; Q9967

== ENCOUNTER 2022-09-05 07:46 | Outpatient (CLI) | payer MEDICARE, MEDICAID, SELFPAY ==
--- NOTE | ~2022-09-05 | CT_ITS ---
CT Scan of the Chest without Contrast: Clinical Indication: Pulmonary nodule Technique: Contiguous sections were acquired throughout the chest without intravenous contrast. Dose reduction technique was used on this scan by utilizing automated exposure control and iterative recon struction technique. The dose-length product (DLP) was 138.96 mGy-cm. COMPARISON: 03/02/2022 and 03/01/2021 Findings: There is no evidence of any significant mediastinal, hilar or axillary lymphadenopathy. Mild coronary artery calcifications are present. No aortic aneurysm. There is no evidence of pleural or pericardial effusion. 5 mm nodule in the right upper lobe is unchanged from most recent prior exam (axial image 53). Stable 2-3 mm left upper lobe pulmonary nodule (axial image 41). Images through the upper abdomen reveal probable prior left nephrectomy. Impression: Subcentimeter pulmonary nodules, as detailed above, stable since 03/02/2022. Reviewed, dictated and finalized at location [] SMOKER Impression: Subcentimeter pulmonary nodules, as detailed above, stable since 03/02/2022.
== END 2022-09-05 07:47 | disposition home or self-care (01) ==
PROVIDERS: PCP Family Medicine; Visit Provider Nurse Practitioner Family
DX: R91.1 Solitary pulmonary nodule (principal)
CPT/HCPCS: 71250

== ENCOUNTER 2023-09-06 09:46 | Outpatient (CLI) | payer MEDICARE, MEDICAID, SELFPAY ==
--- NOTE | ~2023-09-06 | CT_ITS ---
CT Scan of the Chest without Contrast: Clinical Indication: Lung cancer screening, personal history of nicotine dependence Technique: Contiguous sections were acquired throughout the chest without intravenous contrast. Dose reduction technique was used on this scan by utilizing automated exposure control and iterative recon struction technique. The dose-length product (DLP) was 112.92 mGy-cm. COMPARISON: 09/05/2022 Findings: There is no evidence of any significant mediastinal, hilar or axillary lymphadenopathy. The mediastin al soft tissues appear normal. There is no evidence of pleural or pericardial effusion. Probable calcified granuloma at the left lung apex noted. Stable 4 mm right upper lobe pulmonary nodu le noted (axial image 54). Stable 3 mm nodule superior segment right lower lobe (axial image 49). Pro bable 7 mm left lower lobe pulmonary nodule which appears increased from prior exam (axial image 82). Images through the upper abdomen reveal no abnormalities. Impression: Lung RADS 4A: Suspicious. 3 month follow-up CT recommended. Reviewed, dictated and finalized at [facility]. OPATHOLOGIST Impression: Lung RADS 4A: Suspicious. 3 month follow-up CT recommended.
== END 2023-09-06 09:47 | disposition home or self-care (01) ==
PROVIDERS: PCP Family Medicine; Visit Provider Nurse Practitioner Family
DX: Z12.2 Encounter for screening for malignant neoplasm of respiratory organs (principal); R91.8 Other nonspecific abnormal finding of lung field; Z87.891 Personal history of nicotine dependence
CPT/HCPCS: 71271

== ENCOUNTER 2023-12-06 13:09 | Outpatient (CLI) | payer MEDICARE, MEDICAID, SELFPAY ==
--- NOTE | ~2023-12-06 | CT_ITS ---
CT Scan of the Chest without Contrast: Clinical Indication: Pulmonary nodule Technique: Contiguous sections were acquired throughout the chest without intravenous contrast. Dose reduction technique was used on this scan by utilizing automated exposure control and iterative recon struction technique. The dose-length product (DLP) was 131.00 mGy-cm. COMPARISON: 09/06/2023 Findings: There is no evidence of any significant mediastinal, hilar or axillary lymphadenopathy. The mediastin al soft tissues appear normal. There is no evidence of pleural or pericardial effusion. 9 mm left lower lobe pulmonary nodule is present, suspected to be mildly increased from prior exam (a xial image 88). Additional subcentimeter bilateral pulmonary nodules are essentially unchanged, with second largest nodule at the left lung apex (axial image 25). Images through the upper abdomen reveal no abnormalities. Impression: 9 mm left lower lobe pulmonary nodule, probably minimally increased in size from prior exam. Given th at the nodule still relatively small, additional follow-up CT in 3-6 months recommended. PET/CT could be considered, though given small size, sensitivity to be decreased. Tissue sampling could also be c onsidered, though again, small size would make this procedure relatively difficult. Multiple additional subcentimeter pulmonary nodules, unchanged. Reviewed, dictated and finalized at location M. Impression: 9 mm left lower lobe pulmonary nodule, probably minimally increased in size fro m prior exam. Given that the nodule still relatively small, additional follow-u p CT in 3-6 months recommended. PET/CT could be considered, though given small size, sensitivity to be decreased. Tissue sampling could also be considered, th ough again, small size would make this procedure relatively difficult. Multiple additional subcentimeter pulmonary nodules, unchanged.
== END 2023-12-06 13:10 | disposition home or self-care (01) ==
PROVIDERS: PCP Family Medicine; Visit Provider Nurse Practitioner Family
DX: R91.1 Solitary pulmonary nodule (principal)
CPT/HCPCS: 71250

== ENCOUNTER 2023-12-26 09:05 | Outpatient (CLI) | payer MEDICARE, MEDICAID, SELFPAY ==
[2023-12-26 09:53] LABS: Alanine Aminotransferase 19 U/L (6-50); Albumin Level 4.2 g/dL (3.5-5.1); Alkaline Phosphatase 68 U/L (38-126); Anion Gap 5 mmol/L (4-12); Aspartate Amino Transferase 22 U/L (17-59); Blood Urea Nitrogen 15 mg/dL (9-20); Calcium 9.3 mg/dL (8.4-10.2); Carbon Dioxide 23 mmol/L (22-30); Chloride 112 mmol/L (98-107); Cholesterol 127 mg/dL (0-200); Estimated Glomerular Filt Rate > 60; Glucose 112 mg/dL (65-110); HDL Direct 42 mg/dL; Potassium 4.3 mmol/L (3.4-5.0); Sodium 140 mmol/L (137-145); Triglycerides 103 mg/dL (<150)
[2023-12-26 10:03] LABS: LDL Cholesterol Direct 70 mg/dL
== END 2023-12-26 09:06 | disposition home or self-care (01) ==
LOC: ANHLAB 09:07
PROVIDERS: PCP Family Medicine; Visit Provider Internal Medicine Cardiovascular Disease
DX: E78.2 Mixed hyperlipidemia (principal)
CPT/HCPCS: 36415; 80053; 80061

== ENCOUNTER 2024-04-08 09:32 | Outpatient (CLI) | payer MEDICARE, MEDICAID, SELFPAY ==
--- NOTE | ~2024-04-08 | CT_ITS ---
CT diagnostic chest wo con Ordering provider: Jovan Gregory APRN History: 64 years Male with . R91.1 - Solitary pulmonary nodule . Comparison: None. Technique: CT chest without IV contrast. Radiation reduction technique utilized. DLP is 110.74 mGy-cm. FINDINGS: VISUALIZED THORACIC INLET: Normal. MEDIASTINUM: Aorta/coronary arteries: Mild atheromatous disease. Heart/other: The heart is not enlarged. Lymph nodes: No mediastinal or hilar adenopathy. LUNGS: Nodule seen in the left lower lobe measuring 9 mm unchanged from previous examination. Nodule in the left upper lobe measuring 4 mm. Nodule in the right upper lobe measuring 4 mm also noted. No p ulmonary masses. No infiltrates or effusions. No pneumothorax. VISUALIZED UPPER ABDOMEN: Left hepatic small hypodensity most likely a cyst measuring 1 cm. Another o ne also seen in the left lobe which measures 0.7 cm. Otherwise, the visualized upper abdomen is juan miguel l. MUSCULOSKELETAL: Soft tissues: The superficial soft tissues are normal. Bones: Age appropriate degenerative changes of the spine. Levoscoliosis. IMPRESSION: 1. No acute cardiopulmonary pathology. 2. Multiple nodules with the largest in the left lower lobe measuring 9 mm. Follow-up in 3-6 months advised. Reviewed, dictated and finalized at location A. IMPRESSION: 1. No acute cardiopulmonary pathology. 2. Multiple nodules with the largest in the left lower lobe measuring 9 mm. Fo llow-up in 3-6 months advised.
== END 2024-04-08 09:33 | disposition home or self-care (01) ==
LOC: ANHIMG 09:32
PROVIDERS: PCP Family Medicine; Visit Provider Nurse Practitioner Family
DX: R91.8 Other nonspecific abnormal finding of lung field (principal)
CPT/HCPCS: 71250

== ENCOUNTER 2024-07-23 09:04 | Outpatient (CLI) | payer MEDICARE, MEDICAID, SELFPAY ==
[2024-07-23 10:10] LABS: Cholesterol 141 mg/dL (0-200); HDL Direct 53 mg/dL; Triglycerides 83 mg/dL (<150)
[2024-07-23 10:21] LABS: LDL Cholesterol Direct 66 mg/dL
== END 2024-07-23 09:05 | disposition home or self-care (01) ==
PROVIDERS: PCP Family Medicine; Visit Provider Internal Medicine Cardiovascular Disease
DX: E78.2 Mixed hyperlipidemia (principal)
CPT/HCPCS: 36415; 80061

== ENCOUNTER 2025-07-28 11:04 | Outpatient (CLI) | payer MEDICARE, MEDICAID, SELFPAY ==
--- NOTE | ~2025-07-28 | CT_ITS ---
EXAMINATION:CT lung screening DATE: 07/28/2025 11:19 INDICATION: Personal history of nicotine dependence. TECHNIQUE: Computed tomography (CT) of the chest was performed without intravenous contrast. Automated exposure control and iterative reconstruction technique were employed. The dose-length product (DLP) was 120.20 mGy-cm. COMPARISON: Chest CT 07/22/2024 FINDINGS: There is mild emphysema. There is mild atelectasis on the right. There is a stable 8 mm nodule in left lower lobe. There is a stable 5 mm nodule in left upper lobe. There are few scattered 2-3 mm nodules in the lungs. No pleural effusion. The heart size is normal. There are coronary artery calcifications. No pericardial effusion. There are cysts in the liver measuring up to 10 mm. There is severe cervical and thoracic spondylosis. IMPRESSION: 1. Lung-RADS category 2: Benign appearance or behavior. Continue annual screening with noncontrast low-dose chest CT in 12 months. Reviewed, dictated and finalized at location E. LIER QUALITY SPECIALIST IMPRESSION: 1. Lung-RADS category 2: Benign appearance or behavior. Continue annual screeni ng with noncontrast low-dose chest CT in 12 months.
--- OUTSIDE RECORDS SUMMARY | 2025-07-28 11:54 | XMS_ITS | Clinical Summary ---
Author Organization [facility] Address [address] [place] [address] Care Team Providers Care Hogshead Inspector Name Role Phone Wilman Myers MD Primary Care Provider [phone] Source Comments [facility],non-owned Affiliates and Associated Physician Practices is amultiple site organization consisting of ambulatory clinics and hospital sitesin [place], [place], [place] and [place]. This disclosure is being madepursuant to the Care Everywhere program and may not contain all information available regarding this patient. Last updated 18.[facility] Allergies Active Allergy Reactions Criticality Noted Date Comments Bupropion Unknown 12/01/2023 Ibuprofen Other Low 02/08/2016 Kidney cannot handle it without having one removed Mirabegron GI Discomfort High 11/20/2020 Nsaids Other Low 02/08/2016 Kidney cannot handle it with having one removed Oxybutynin GI Discomfort 12/01/2023 Medications * Be aware that medications may not be up to date on this document. Alwaysverify current medications with the patient. albuterol HFA (PROVENTIL;VENT DIANNA;PROAIR) 108 (90 BASE) MCG/ACT inhaler Inhale 2 (two) puffs by mouth every 6 hours as needed for Wheezing Active lisinopril (PRINIVIL; ZESTRIL) 20 MG tablet Take 1 (one) tablet by mouth once daily Active amLODIPine (NORVASC) 5 MG tablet Take 1 (one) tablet by mouth once daily 12/16/2015 Active fluticasone propionate (FLONASE) 50 MCG/ACT nasal spray [place] 1 (one) spray to 2 (two) sprays into the nose 2 times daily Active gabapentin (NEURONTIN) 600 MG tablet Take 1 (one) tablet by mouth 3 times daily 10/23/2020 Active ADVAIR HFA 115-21 MCG/ACT 10/13/2020 Acti ve oxybutynin (DITROPAN) 5 MG tablet Take 1 (one) tablet by mouth every 8 hours as needed (for urinary urgency and frequency) 90 tablet 5 11/20/2020 Active aspirin (ASPIRIN) 81 MG chew tablet Take 1 (one) tablet by mouth once daily Active simvastatin (ZOCOR) 40 MG tablet Take 1 (one) tablet by mouth at bedtime Active Azelastine HCl 137 MCG/SPRAY SOLN USE 1 SPRAY(S) IN EACH NOSTRIL ONCE DAILY 04/19/2022 Active montelukast (Singulair) 10 MG tablet Take 1 (one) tablet by mouth at bedtime 04/11/2025 Active Active Problems Problem Noted Date Diagnosed Date Neurofibroma 07/01/2022 Xerosis cutis 06/18/2021 History of actinic keratoses 11/23/2018 Inflamed seborrheic keratosis 11/23/2018 Neoplasm of uncertain behavior of skin 8 AK (actinic keratosis) 11/29/2016 Multiple benign melanocytic nevi of upper and lower extremities and trunk 11/29/2016 Martinez angioma 10/09/2015 Ecchymosis 10/09/2015 Seborrheic keratosis 10/09/2015 Solar lentiginosis 10/09/2015 Immunizations Immunization Administration Dates Next Due INFLUENZA VACCINE, QUADR. (F LUZONE; FLULAVAL; FLUARIX; AFLURIA QUADRIVALENT; 6MO+), 0.5 ML (IIV4) 06/11/2020 Family History Medical History Relation Name Comments Cancer - Other Father Asthma Neg Hx CVA Neg Hx Cancer - Breast Neg Hx Cancer - Skin, Melanoma Neg Hx Cancer - Skin, Non Melanoma Neg Hx Eczema Neg Hx Hemophilia Neg Hx Psoriasis Neg Hx Relation Name Status Comments Father Social History Tobacco Use Types Packs/Day Years Used Date Smoking Tobacco: Every Day Cigarettes Smokeless Tobacco: Never Tobacco Cessation:Ready to Q uit: Yes; Counseling Given: Yes Alcohol Use Standard Drinks/Week Comments No 0 (1 standard drink = 0.6 oz pur e alcohol) PHQ-2 Answer Date Recorded Patient Health Questionnaire-2 Score 0 04/25/2025 Sex and Gender Information Value Date Recorded Sex Assigned at Not on file Legal Sex Male 4:05 PM CDT Gender Identity Not on file Sexual Orientation Not on file Last Filed Vital Signs Vital Sign Reading Time Taken Comments Blood Pressure 128/71 04/25/2025 11:26 AM CDT Pulse 59 04/25/2025 11:26 AM CDT Temperature 37.1 C (98.8 F) 04/25/2025 11:26 AM CDT Respiratory Rate 18 07/01/2022 9:31 AM CDT Oxygen Saturation 96% 04/25/2025 11:26 AM CDT Inhaled Oxygen Concentration - - Weight 76.7 kg (169 lb) 04/25/2025 11:26 AM CDT Height 175.3 cm (5' 9) 04/25/2025 11:26 AM CDT Body Mass Index 24.96 04/25/2025 11:26 AM CDT Plan of Treatment Upcoming Encounters Date Type Department Care Team (Late st Contact Info) Description 03/13/2026 9:00 AM CDT Office Visit [facility] - Dermatology [address] [place] [address], [place] [address] Bernardino Sher MD [address] [place] [address] [address] [place] [address] Health Maintenance Due Date Last Done Comments COLOGUARD (AGES 45-75) - COLON CA SCREENING 1959 COLON MONITORING 1959 COLONOSCOPY - COLON CA SCREENING 1959 CT COLONOGRAPHY - COLON CA SCREENING 1959 Colorectal Cancer Screening 1959 FIT - COLON CA SCREENING 1959 FLEX SIG - COLON CA SCREENING 1959 MEDICARE AWV 12 MONTHS 1959 DTAP/TDAP/TD VACCINES (1 - Tdap) 1978 PNEUMOCOCCAL VACCINE 50+ (1 of 2 - PCV) 1978 ZOSTER VACCINE (1 of 2) 2009 AAA SCREENING 2024 COVID-19 VACCINE ( season) 2025 01/26/2022, 08/16/2021, 11/21/2020, Additional history exists INFLUENZA VACCINE (#1) 2025 06/11/2020 Respiratory Syncytial Virus (RSV) Vaccine Pt: or over 60 yrs (1 - 1-dose 75+ series) 2034 HEPATITIS C SCREENING Completed 07/31/2014 DEPRESSION SCREENING Completed 04/25/2025 HEPATITIS B VACCINE Aged Out No longe r eligible based on patient's age to complete this topic HIB VACCINE Aged Out No longer eligi ble based on patient's age to complete this topic HPV VACCINE Aged Out No longer eligi ble based on patient's age to complete this topic MENINGOCOCCAL (Group B) VACCINE SHARED DECISION-MAKING Aged Out No longer eligible based on patient's age to complete this topic MENINGOCOCCAL GROUPS A/C/Y/W VACCINE Aged Out No longer eligible based on patient's age to complete this topic Procedures Procedure Name Priority Date/Time Associated Diagnosis Comments EXPOSURE PANEL SOURCE STAT 07/31/2014 11:51 AM AVIONICS SUPERVISOR from Last 3 Months or Most Recently Relevant to Health Maintenance Results * EXPOSURE PANEL SOURCE (07/31/2014 11:51 AM AVIONICS SUPERVISOR) HIV Antigen/Antibody 1 & 2 Non-react [facility] Comment: Neither HIV-1 p24 Antigen nor HIV-1/HIV-2 Antibodies are detected. Hepatitis C Antibody Non-react [facility] Comment: Hepatitis C Antibody screen indicates no serologic evidence of past or current infection with Hepatitis C Virus. Patients with unexplained liver disease who are immunocompromised or suspected of having acute Hepatitis C infection may benefit from Nucleic Acid Test (DIAZ) for Hepatitis C Viral RNA to confirm Hepatitis C status. Hepatitis B Virus Surface Antigen Non-react [facility] Hepatitis B Core Virus Antibody IgM Non-react [facility] Blood specimen (specimen) BLOOD SPECIMEN / Unknown 07/31/2014 11:51 AM AVIONICS SUPERVISOR 07/31/2014 11:51 AM AVIONICS SUPERVISOR us Twin Elizalde MD LAB - CHEMISTRY ORDERA [place]ES [place] [address], [facility] [phone] from Last 3 Months or Most Recently Relevant to Health Maintenance Insurance MEDICAID - OUT [facility] [place] [id number] MEDICARE MEDICARE MEDICAID - [place] Care Teams Hogshead Inspector Relationship Specialty Start Date End Date Wilman Myers MD [address] [place] [phone] PCP - General 05/21/21
--- OUTSIDE RECORDS SUMMARY | 2025-07-28 11:54 | XMS_ITS | Clinical Summary ---
Author Organization [facility] Address [address] [place] [address] Phone Care Team Providers Care Disulfurizer Tender Name Role Phone Jacquie Roger Velazquez DPM Unavailable [phone] Provider, None Primary Care Provider Unavailabl e Allergies Active Allergy Reactions Criticality Noted Date Comments Ibuprofen Other (see Comments) 12/23/2015 Kidney cannot handle it without having one removed Nsaids Other (see Comments) 12/23/2015 Kidney cannot handle it with having one removed Medications amLODIPine (NORVASC) 5 MG Tablet 1 Tab daily. 6 Active finasteride (PROSCAR) 5 MG Tablet 1 Tab daily. 6 Active tamsulosin (FLOMAX) 0.4 MG Capsule 1 Cap 2 times daily. 6 Active furosemide (LASIX) 20 MG Tablet Take 20 mg by mouth Every other day. Active potassium chloride 10 MEQ/100ML Solution Every other day. Active simvastatin (ZOCOR) 40 MG Tablet Take 40 mg by mouth every evening. Active lisinopril (PRINIVIL, ZESTRIL) 20 MG Tablet Take 20 mg by mouth daily. Active Albuterol Sulfate (VENTOLIN HFA IN) take by inhalation. Active beclomethasone (QVAR) 40 MCG/ACT Aerosol Solution take 1 Puff by inhalation 2 times daily. Active fluticasone (FLONASE) 50 MCG/ACT Suspension 1-2 Sprays by Nasal route 2 times daily. Use in each nostril as directed. Active gabapentin (NEURONTIN) 600 MG Tablet TAKE 1 TABLET BY MOUTH THREE TIMES DAILY 270 Tab 0 Active Active Problems Problem Noted Date Diagnosed Date Ingrown left greater toenail 05/03/2017 Pain of left great toe 05/03/2017 Lumbar radiculopathy 03/09/2017 Idiopathic neuropathy 03/09/2017 Neuropathy involving both lower extremities 0402/2016 Pain of right great toe 12/23/2015 Ingrown nail of great toe of right foot 12/23/19 16 Social History Tobacco Use Types Packs/Day Years Used Date Smoking Tobacco: Some Days Cigarettes 1 42 Smokeless Tobacco: Never Tobacco Cessation:Ready to Q uit: No; Counseling Given: No Alcohol Use Standard Drinks/Week Comments No 0 (1 standard drink = 0.6 oz pur e alcohol) Sex and Gender Information Value Date Recorded Sex Assigned at Not on file Legal Sex Male 10:16 PM CDT Gender Identity Not on file Sexual Orientation Not on file Last Filed Vital Signs Vital Sign Reading Time Taken Comments Blood Pressure 138/80 12/29/2017 8:58 AM CDT Pulse 66 12/29/2017 8:58 AM CDT Temperature 36.6 C (97.8 F) 12/29/2017 8:58 AM CDT Respiratory Rate 18 12/29/2017 8:58 AM CDT Oxygen Saturation 99% 12/29/2017 8:58 AM CDT Inhaled Oxygen Concentration - - Weight 77.1 kg (170 lb) 12/29/2017 8:58 AM CDT Height 175.3 cm (5' 9) 12/29/2017 8:58 AM CDT Body Mass Index 25.1 12/29/2017 8:58 AM CDT Plan of Treatment Health Maintenance Due Date Last Done Comments Hepatitis C Virus (HCV) Screening 1959 Cologuard 2004 Colonoscopy 2004 Colorectal Cancer Screening 2004 Immunochemical Fecal Occult Blood 2004 Pneumococcal Immunization (5 0+ years) (1 of 1 - PCV) 2009 Zoster Immunization (1 of 2) 2009 Medicare Initial AWV [id number] 08/18/2017 Influenza Immunization (#1) 2025 SARS-COV-2 Immunization (3 - season) 2025 08/16/2021, 11/21/2020 Respiratory Syncytial Virus (RSV) Immunization (Adult) (1 - 1-dose 75+ series) 2034 DTaP/Tdap/Td Immunization Discontinued 09/15/2014 TdaP Immunization Completed 09/15/2014 Hepatitis B Immunization Aged Out No longer eligible based on patient's age to complete this topic Human Papillomavirus (HPV) Immunization Aged Out No longer eligible based on patient's age to complete this topic Meningococcal Immunization (ACWY) Aged Out No longer eligible based on patient's age to complete this topic Rotavirus Immunization Aged Out No lo nger eligible based on patient's age to complete this topic Insurance MEDICAID [place] MEDICARE Care Teams Disulfurizer Tender Relationship Specialty Start Date End Date Provider, None [place] PCP - General 11/28/17 Roger Dhillon DPM Podiatry 12/23/15
== END 2025-07-28 11:05 | disposition home or self-care (01) ==
PROVIDERS: PCP Physician Assistant; Visit Provider Nurse Practitioner Family
DX: Z12.2 Encounter for screening for malignant neoplasm of respiratory organs (principal); Z87.891 Personal history of nicotine dependence
CPT/HCPCS: 71271